=== PATIENT | female | born 1995 | race African-American/Black ===

== ENCOUNTER 2018-09-13 13:25 | Emergency (ER) | payer OTHER ==
[~2018-09-13] VITALS: Ht 157.5 cm; Wt 67.1 kg
[2018-09-13 13:28] VITALS: Ht 157.5 cm; Wt 67.1 kg
[2018-09-13 13:48] LABS: microscopic required? NO
[2018-09-13 14:05] LABS: UA SPECIFIC GRAVITY >=1.030 (1.005-1.035); urine erythrocyte NEGATIVE (NEGATIVE)
[2018-09-13 14:37] LABS: BASOPHIL % 0.3 % (0-2); PLATELET COUNT 166 x10^3mcL (130-400); RED CELL DISTRIBUTION WIDTH 13.8 % (11.5-14.5)
[2018-09-13 14:45] LABS: CALCIUM 9.1 mg/dL (8.5-10.1); CARBON DIOXIDE 28.6 mmol/L (21-32); CHLORIDE SERUM 101 mmol/L (98-107); GFR1 > 60 mL/min; GLUCOSE SERUM 89 mg/dL (74-106); SODIUM SERUM 135 mmol/L (136-145)
[2018-09-13 14:49] LABS: ALKALINE PHOSPHATASE 49 U/L (46-116); ALT/SGPT 17 U/L (14-59); AST/SGOT 16 U/L (15-37); TOTAL PROTEIN, SERUM 7.3 g/dL (6.4-8.2)
[2018-09-13 15:28] VITALS: BP 110/69
[2018-09-13 15:40] LABS: AMPHETAMINE QUAL UR NONE DETECTED (See below)
== END 2018-09-13 15:28 | disposition home or self-care (01) ==
LOC: ED 13:25
PROVIDERS: Emergency Medicine
DX: R42 Dizziness and giddiness (principal); H57.13 Ocular pain, bilateral; R10.9 Unspecified abdominal pain
CPT/HCPCS: 36415